=== PATIENT | female | born 2000 | race Caucasian/White ===

== ENCOUNTER 2025-05-26 19:52 | Emergency (ER) | payer BC, SELFPAY ==
[2025-05-26 19:54] VITALS: BP 160/66
[2025-05-26] MEDS: NSS 1000 IV (20:56)
[2025-05-26] MEDS: ZOFRAN 4 MG IV (20:58)
[2025-05-26 21:06] LABS: Hematocrit 44.2 % (37.0-47.0); Hemoglobin 14.7 g/dL (12.0-16.0); Mean Corp Hgb Conc. 33.3 g/dL (33.0-37.0); Mean Corpuscular Volume 91.3 fL (81.0-99.0); Nucleated Red Blood Cells % 0 %; Platelet Count 301 10^3/uL (130-400); Red Cell Dist. Width 12.5 % (11.5-14.5)
[2025-05-26 21:23] LABS: HCG, Serum Qualitative Screen Negative
[2025-05-26 21:24] LABS: ALT (SGPT) 24 U/L (0-35); AST (SGOT) 27 U/L (14-36); Albumin 5.2 g/dl (3.5-5.0); Alkaline Phosphatase 46 U/L (38-126); Blood Urea Nitrogen 13 mg/dl (7-17); Calcium 10.2 mg/dl (8.4-10.2); Carbon Dioxide 25 mmol/L (22-30); Chloride 106 mmol/L (98-107); Glucose 120 mg/dl (70-99); Lipase 67 U/L (23-300); Potassium 4.2 mmol/L (3.5-5.1); Sodium 140 mmol/L (135-145); Total Protein 7.8 g/dl (6.3-8.2); eGFR > 60.00
--- NOTE | 2025-05-26 21:24 | ED.GENMED ---
History of Present Illness
General
Chief Complaint: Abdominal Symptoms
Time Seen by Provider: 05/26/25 20:45
History of Present Illness
History of Present Illness:
Patient is a 24-year-old woman with history of gallbladder sludge presenting to the emergency department with nausea vomiting diarrhea. Patient states that her sister developed a GI bug this morning. Shortly after patient developed nausea vomiting
diarrhea as well as some chills. She has not countless episodes of emesis. She does not have any abdominal pain. She does state that sometimes when she gets a GI bug her gallbladder plain will flare up however it did not this time. No fevers
chills. No urinary symptoms. No vaginal symptoms. She does state that she tried sipping on water though immediately had vomiting and diarrhea.
Past History
Past History
ED Past Medical History: Other (Immune deficiency, allergies)
Social History
Tobacco: Non-smoker
Alcohol: None
Phy Exam
Physical Exam
Physical Exam:
GENERAL: in no acute distress
HEENT: normocephalic, extraocular movements intact, dry oral mucosa
NECK: normal inspection
RESPIRATORY: no respiratory distress, clear to auscultation bilaterally
CARDIOVASCULAR: regular rate and rhythm
ABDOMEN/: soft, non-distended, non-tender to palpation, no rebound or guarding
EXTREMITIES: non-tender, no edema/swelling
NEUROLOGIC: awake and alert, moves all extremities
SKIN: warm
Sepsis
Sepsis Screening
Sepsis Assessment: Sepsis Ruled Out
Sepsis Screen
Sepsis Screen: Sepsis Ruled Out
Date: 05/27/25
Time: 01:17
Course
Orders/Labs/Results
Orders:
Orders
05/26/25 19:59
IV Insert/Care/Rem.- Treatment PRN
05/26/25 20:00
Test Result ONCE
05/26/25 20:48
0.9% Sodium Chloride 1000 ml [Nss] 1,000 ml IV BOLUS
Ondansetron Injectable [Zofran] 4 mg IV NOW STA
05/26/25 20:55
Complete Blood Count/With Diff Urgent
Comprehensive Metabolic Panel Urgent
HCG, Serum Qualitative Screen Urgent
Comment: Notify provider if positive test present
Lipase Urgent
05/26/25 21:59
Ibuprofen [Motrin] 600 mg PO NOW STA
Abnormal Lab Results
05/26/25
20:55
Absolute Neuts (auto) 7.5 H 10^3/uL
(1.4-6.5)
Absolute Lymphs (auto) 0.3 L 10^3/uL
(1.2-3.4)
Neutrophils % 88.4 H %
(42.2-75.2)
Lymphocytes % 3.3 L %
(20.5-51.1)
Glucose 120 H mg/dl
(70-99)
Total Bilirubin 1.4 H mg/dl
(0.2-1.3)
Albumin 5.2 H g/dl
(3.5-5.0)
05/26/25 20:55
05/26/25 20:55
Vital Signs
Initial and Last Documented VS:
Initial Vital Signs
Temp Pulse Resp BP Pulse Ox
97.7 F 106 26 160/66 98
05/26/25 19:54 05/26/25 19:54 05/26/25 19:54 05/26/25 19:54 05/26/25 19:54
Last Documented Vital Signs
Temp Pulse Resp BP Pulse Ox
97.7 F 100 24 160/66 98
05/26/25 19:54 05/26/25 22:15 05/26/25 22:15 05/26/25 19:54 05/26/25 21:27
MDM/Problems Addressed
Differential Diagnosis Includes:
Patient is a 24-year-old woman with history of biliary sludge presenting to the emergency department with 1 day of nausea vomiting diarrhea in the setting of being in contact with her sister with similar symptoms. On arrival patient slightly
tachycardic though during my evaluation that has since resolved. She does have dry oral mucosa. Abdomen is soft nondistended nontender. Likely gastroenteritis. Considered biliary colic though abdominal exam is benign. History and exam not
consistent with surgical abdomen. Will obtain blood work and give IV fluids as well as Zofran. Considered CT imaging though given benign exam we will hold off.
*Pulse Oximetry
SaO2: 98
Patient hypoxic: no
*Critical Care Note
Total Time (30-74mins, 75-104mins- exclusive of procedures): Not Applicable
Update Note
Update Note:
On reevaluation patient resting comfortably. Patient is tolerating p.o. Heart rate has improved. Will discharge patient at this time.
ED Attending Note
-
Portions of this chart may have been created with voice recognition software.� Occasional wrong word or��sound alike� substitutions may have occurred due to the inherent limitations of voice recognition software.
Discharge Plan
Departure
Patient Disposition: Home (Routine Discharge)
Date of Disposition: 05/26/25
Time of Disposition: 21:59
Patient with high blood pressure during this ER visit?: Yes
Discharge Problem:
Gastroenteritis
Instructions: Diarrhea in teens and adults, Nausea and Vomiting, Adult (DC)
Prescriptions:
New
ondansetron 4 mg tablet,disintegrating
4 mg PO Q8H PRN (Reason: nausea and vomiting) 2 Days Qty: 7 0RF
No Action
cetirizine 10 MG tablet
10 mg PO DAILY
albuterol sulfate 2.5 MG/3 ML solution for nebulization
2.5 mg inhalation R Q4HPRN PRN (Reason: shortness of breath)
Patient Comments:
alternates with duoneb
albuterol sulfate [Albuterol Sulfate HFA] 18 GM HFA aerosol inhaler
8.5 gm inhalation PRN PRN (Reason: wheezing/15min before exercise) Qty: 2 3RF
Rx Instructions:
For today, date of discharge 09-06-2014, use Albuterol Inhaler with spacer 2 puffs 4 times a day, then only on an as needed basis.
norethindrone-e.estradiol-iron [Tri-Legest Fe] 1 EACH tablet
1 tab PO DAILYPRN PRN (Reason: control)
dextroamphetamine-amphetamine [Adderall XR] 15 MG capsule,extended release 24hr
15 mg PO DAILY
Activity Restrictions/Additional Instructions:
You have been evaluated in the Emergency Department today for nausea and vomiting. Your evaluation suggests that your symptoms are most likely due to viral illness which will improve on its own with rest and fluids. Remember to drink plenty of
fluids at home.
Please follow up with your primary care physician within two days. I did give you a short course of Zofran.
Return to the Emergency Department if you experience worsening or uncontrolled pain, inability to tolerate fluids by mouth, difficulty breathing, fevers 100.4�F or greater, recurrent vomiting, or any other concerning symptoms.
Thank you for choosing us for your care.
Interventions
Interventions:
*Risk Screen - Suicide Last Done: 05/26/25 19:54
*General Assessment Last Done: 05/26/25 22:20
*Neglect/Abuse Screening Last Done: 05/26/25 19:54
*ED- Fall Risk Assessment Last Done: 05/26/25 22:20
*ED COVID-19 Vaccine History Last Done: 05/26/25 22:20
*ED Influenza Vaccine History Last Done: 05/26/25 22:20
*Nursing Disposition Last Done: 05/26/25 22:20
CC-Amlbmu-Rxkzinltsd Assessment Last Done: 05/26/25 21:07
Discharge Date and Time
Discharge Date/Time: 05/26/25 22:21
Print Language: THAI
[2025-05-26] MEDS: MOTRIN 600 MG PO (22:14)
== END 2025-05-26 22:21 | disposition home or self-care (01) ==
LOC: EMR 19:52
PROVIDERS: Physician Assistant; EMERGENCY PHYSICIAN Student in an Organized Health Care Education/Training Program; FAMILY PHYSICIAN Nurse Practitioner Primary Care
DX: K52.9 Noninfective gastroenteritis and colitis, unspecified (principal); R03.0 Elevated blood-pressure reading, without diagnosis of hypertension; D84.9 Immunodeficiency, unspecified
CPT/HCPCS: 99284; 96374; 96361; 80053; 83690; 84703; 85025